=== PATIENT | female | born 1985 | race Caucasian/White ===

== ENCOUNTER 2020-01-12 21:57 | Emergency (ER) | payer OTHER ==
[~2020-01-12] VITALS: Ht 162.6 cm; Wt 61.2 kg
[~2020-01-12 21:57] MED LIST: AMOXICILLIN 50500 MG PO; ANTIANXIETY; CIPROFLOXACIN500 M1 PO; IBUPROFEN 600600 M1 PO; IBUPROFEN 800800 M1 PO; NORCO 5-325 TA1 EACH PO; SLEEPING PILL; SOMA250 MG PO; TRAMADOL 50 MG50 MG PO; XANAX XR3 MG PO; ZOFRAN ODT4 MG PO
[2020-01-12 23:11] VITALS: BP 132/70
== END 2020-01-12 23:22 | disposition home or self-care (01) ==
LOC: M.ERS 21:57
DX: S61.213A Laceration without foreign body of left middle finger without damage to nail, initial encounter (principal); F17.210 Nicotine dependence, cigarettes, uncomplicated; W23.0XXA Caught, crushed, jammed, or pinched between moving objects, initial encounter; Y93.89 Activity, other specified; Y92.89 Other specified places as the place of occurrence of the external cause; Y99.8 Other external cause status

== ENCOUNTER 2020-06-17 13:48 | Emergency (ER) | payer OTHER ==
[~2020-06-17] VITALS: Ht 170.2 cm; Wt 61.2 kg
[2020-06-17] MEDS ORDERED: NORCO 5-325 TA1 EAC2 PO (16:17)
[2020-06-17] MEDS ORDERED: MEDROLDOSEPACK PO (16:17)
[2020-06-17] MEDS ORDERED: NAPROSYN500 MG PO (16:17)
[2020-06-17 16:30] VITALS: BP 121/70
== END 2020-06-17 16:30 | disposition home or self-care (01) ==
LOC: M.ERS 13:48
DX: S16.1XXA Strain of muscle, fascia and tendon at neck level, initial encounter (principal); M25.512 Pain in left shoulder; Z88.8 Allergy status to other drugs, medicaments and biological substances; W10.8XXA Fall (on) (from) other stairs and steps, initial encounter; Y93.89 Activity, other specified; Y92.89 Other specified places as the place of occurrence of the external cause; Y99.8 Other external cause status

== ENCOUNTER 2020-08-24 18:19 | Emergency (ER) | payer OTHER ==
[~2020-08-24] VITALS: Ht 170.2 cm; Wt 63.5 kg
[~2020-08-24 18:19] MED LIST changes: +MEDROLDOSEPACK PO; +NAPROSYN500 MG PO; +NORCO 5-325 TA1 EAC2 PO
[2020-08-24] MEDS ORDERED: NORCO 5-325 TA1 EAC2 PO (18:55)
[2020-08-24] MEDS ORDERED: AUGMENTIN 875-1 EACH PO (18:55)
[2020-08-24 19:16] VITALS: BP 149/93
== END 2020-08-24 19:16 | disposition home or self-care (01) ==
LOC: M.ERS 18:19
DX: S51.811A Laceration without foreign body of right forearm, initial encounter (principal); F31.9 Bipolar disorder, unspecified; F41.9 Anxiety disorder, unspecified; Z88.8 Allergy status to other drugs, medicaments and biological substances; W54.0XXA Bitten by dog, initial encounter; Y93.89 Activity, other specified; Y92.89 Other specified places as the place of occurrence of the external cause; Y99.8 Other external cause status

== ENCOUNTER 2020-09-16 22:21 | Emergency (ER) | payer OTHER ==
[~2020-09-16] VITALS: Ht 167.6 cm; Wt 61.2 kg
[~2020-09-16 22:21] MED LIST changes: +AUGMENTIN 875-1 EACH PO
[2020-09-16 23:44] LABS: ABSOLUTE EOSINOPHILS 0.5 thou/uL (0.0-0.7); ABSOLUTE LYMPHOCYTES 2.5 thou/uL (0.8-5.3); ABSOLUTE MONOCYTES 0.4 thou/uL (0.0-1.2); BASOPHILS 0.7 %; EOSINOPHILS 8.4 %; HEMATOCRIT 40.4 % (37.0-47.0); HEMOGLOBIN 13.7 gm/dL (12.0-15.0); LYMPHOCYTES 38.2 %; MCHC 33.9 g/dL (28.0-37.0); MCV 97.3 fL (80.0-100.0); MONOCYTES 6.1 %; MPV 8.9 fl. (7.2-11.1); NUCLEATED RBCS 0 /100WBC; PLATELET COUNT* 234 thou/uL (150-400); POLYS 46.6 %; RBC 4.16 mil/uL (4.20-5.00); RDW-CV 12.7 % (10.5-14.5); WBC 6.5 thou/uL (4.0-11.0)
[2020-09-16 23:50] LABS: CALCIUM 9.5 mg/dL (8.5-10.1); CREATININE 0.7 mg/dL (0.6-1.3); POTASSIUM 3.7 mmol/L (3.5-5.1)
[2020-09-16 23:55] LABS: ALBUMIN 4.4 g/dL (3.4-5.0); TOTAL BILIRUBIN 0.5 mg/dL (<0.1-1.0); TOTAL PROTEIN 7.3 g/dL (6.4-8.2)
[2020-09-17] MEDS ORDERED: TRAMADOL 50 MG50 MG PO (02:28)
[2020-09-17] MEDS ORDERED: SKELAXIN 800 M800 M1 PO (02:28)
[2020-09-17 02:40] VITALS: BP 132/91
== END 2020-09-17 02:41 | disposition home or self-care (01) ==
LOC: M.ERS 22:21
PROVIDERS: Emergency Medicine
DX: M62.830 Muscle spasm of back (principal); M54.5 Low back pain; M54.6 Pain in thoracic spine; M79.645 Pain in left finger(s); R22.32 Localized swelling, mass and lump, left upper limb; R10.31 Right lower quadrant pain; M54.2 Cervicalgia; F17.210 Nicotine dependence, cigarettes, uncomplicated; G89.29 Other chronic pain; V49.49XA Driver injured in collision with other motor vehicles in traffic accident, initial encounter; Y93.89 Activity, other specified; Y92.89 Other specified places as the place of occurrence of the external cause; Y99.8 Other external cause status

== ENCOUNTER 2021-01-01 23:24 | Emergency (ER) | payer OTHER ==
[~2021-01-01] VITALS: Ht 165.1 cm; Wt 61.2 kg
[~2021-01-01 23:24] MED LIST changes: +SKELAXIN 800 M800 M1 PO
[2021-01-01] MEDS ORDERED: XANAX 0.5 MG0.5 M1 PO (23:35)
[2021-01-02 00:27] LABS: AMP/METHAMP POSITIVE (Negative); BARBITURATES Negative (Negative); BENZODIAZEPINES POSITIVE (Negative); COCAINE POSITIVE (Negative); METHADONE Negative (Negative); OPIATES Negative (Negative); PCP Negative (Negative); THC POSITIVE (Negative)
[2021-01-02 01:56] VITALS: BP 118/80
== END 2021-01-02 01:57 | disposition home or self-care (01) ==
LOC: M.ERS 23:24
PROVIDERS: Personal Emergency Response Attendant
DX: S01.01XA Laceration without foreign body of scalp, initial encounter (principal); G89.29 Other chronic pain; Z88.6 Allergy status to analgesic agent; W01.0XXA Fall on same level from slipping, tripping and stumbling without subsequent striking against object, initial encounter; Y93.89 Activity, other specified; Y92.098 Other place in other non-institutional residence as the place of occurrence of the external cause; Y99.8 Other external cause status

== ENCOUNTER 2021-01-07 11:07 | Emergency (ER) | payer OTHER ==
[~2021-01-07] VITALS: Ht 165.1 cm; Wt 60.8 kg
--- NOTE | ~2021-01-07 | EMS ---
[facility] [address] [place] [address] EMS Patient Care Report Name: SHARONA MASTERS Room: [facility]#: [id number] Admission: 01/07/21 Attend Phys: Discharge: Date of : 87 Report #: [id number] THIS REPORT FOR: //name// Report Transmitted: 01/07/2021 17:33 EMS Care Summary [facility] [place] Incident [id number] @ 01/07/2021 10:30 Incident Location [address] [place] [address] Patient SHARONA MASTERS Female, 35 Years 1985 Patient Address [address] [place] [address] Patient History Anxiety disorder, unspecified,Bipolar disorder, unspecified,Dysthymic disorder,Schizoaffective Disorder, Patient Allergies , Chief Complaint Pain-musculoskeletal Disposition Transported No Lights/[facility]man Dispatch Reason Traumatic Injury Transported To [facility] Narrative [facility] WAS DISPATED TO A FEMALE WHO FELLA FEW DAYS AGO AND NOW HAS A COMPLAINT OF ARM ANF RIB PAIN. UPON ARRIVAL PATIENT WAS FOUND SITTING ON A COUCH HOLDING HER LEFT ARM TIGHT TO HER BODY. DUE TO THE STATE THE HOUSE WAS IN, PATIENT WAS ASKED IF SHE COULD WALK OUTSIDE FOR THE CREW. PATIENT WAS ABLE TO WALK OUTSIDE WITH OUT ANY DIFFICLUTY. PATIENT STATED THAT SHE FELL IN THE SHOWER, NO BLOOD [facility] [address] [place] [address] EMS Patient Care Report Name: SHARONA MASTERS Room: [facility]ENC[facility]IAN#: [id number] Admission: 01/07/21 Attend Phys: Discharge: Date of : 87 Report #: [id number] THINNERS, NO LOSS OF CONCIUOUSNESS, AND DID NOT HIT HER HEAD. PATIENT STATED THAT SHE HAS BEEN TAKING PRESCRIBED MEDICATION TO SLEEP THAT WAS NOT PRESCRIBED TO HER. PATIENT ALSO ADMITTED TO METH USE FOR PAIN. PATIENT STATED THAT SHE HASN'T USED METH SINCE 18 YEARS OLD. PATIENT HAD NO SWELLING OR BRUISING. PATIENT MOTOR, SENSORY AND CIRCULATION WERE INTAKE OF THE AFFECTED ARM. PATIENT HAD NO FURTHER COMPLAINTS. NO CHANGE IN PATIENT CONDITION OCCURED WHILE EN ROUTE. PATIENT DID SIGN FOR HERSELF. UPON ARRIVAL PATIENT WAS TAKEN TO ROOM 6 AND WAS ALLOWED TO WALK TO THE BED FORM THE COT. REPORT WAS GIVEN TO RECEIVING NURSE AND SHE SIGNED FOR PATIENT CARE. --END-- Initial Vitals @10:49Pain: 07/10, @10:59Pain: 07/10, @10:51SpO2: 98, @11:00SpO2: 97, @10:50P: 85,R: 16,BP: 112/81,Revised Trauma: 8, @10:59P: 90,R: 16,BP: 120/80,Revised Trauma: 8, @10:50GCS: 15, @10:59GCS: 15, Assessments @10:40MENTAL:SKIN:HEENT:LUNG SOUNDS:ABDOMEN:PELVIS//GI:EXTREMITIES:PULSE:NEURO: Impression Chest Pain, Other (Non-Cardiac) Timeline 10:30,Call Received 10:30,Dispatch Notified 10:30,Psap Call 10:30,Dispatched 10:30,En Route 10:37,On Scene 10:40,At Patient 10:46,Depart Scene 10:49,BP: / M,PULSE: ,RR: R,SPO2: Ox,ETCO2: ,BG: ,PAIN: 10,GCS: , 10:50,BP: 112/81 M,PULSE: 85,RR: 16 R,SPO2: Ox,ETCO2: ,BG: ,PAIN: ,GCS: , 10:50,BP: / M,PULSE: ,RR: R,SPO2: Ox,ETCO2: ,BG: ,PAIN: ,GCS: 15, 10:51,BP: / M,PULSE: ,RR: R,SPO2: 98 Ox,ETCO2: ,BG: ,PAIN: ,GCS: , 10:59,BP: / M,PULSE: ,RR: R,SPO2: Ox,ETCO2: ,BG: ,PAIN: 10,GCS: , 10:59,BP: 120/80 M,PULSE: 90,RR: 16 R,SPO2: Ox,ETCO2: ,BG: ,PAIN: ,GCS: , 10:59,BP: / M,PULSE: ,RR: R,SPO2: Ox,ETCO2: ,BG: ,PAIN: ,GCS: 15, 11:00,BP: / M,PULSE: ,RR: R,SPO2: 97 Ox,ETCO2: ,BG: ,PAIN: ,GCS: , 11:05,[place] [address] EMS Patient Care Report Name: SHARONA MASTERS Room: [facility]#: [id number] Admission: 01/07/21 Attend Phys: Discharge: Date of : 87 Report #: [id number] 11:12,Call Closed Disclaimer [email or web address] Copyright 2020 [employer] This EMS Care Summary contains data elements from the applicable legal record (which may be displayed differently). It is designed to provide pertinent information for the following purposes: continuity of care, clinical quality, and state data reporting. The complete legal record is available to ED staff and administrators of the receiving hospital in [employer] Patient Tracker. All data is provided "as is."
[~2021-01-07 11:07] MED LIST changes: +XANAX 0.5 MG0.5 M1 PO
[2021-01-07] MEDS ORDERED: IBUPROFEN 800800 MG PO (12:19)
[2021-01-07] MEDS ORDERED: TRAMADOL 50 MG50 MG PO (12:19)
[2021-01-07 12:34] VITALS: BP 115/60
== END 2021-01-07 12:35 | disposition home or self-care (01) ==
LOC: M.ERS 11:07
DX: S40.012A Contusion of left shoulder, initial encounter (principal); G89.29 Other chronic pain; F17.210 Nicotine dependence, cigarettes, uncomplicated; Z88.6 Allergy status to analgesic agent; W18.39XA Other fall on same level, initial encounter; Y93.E1 Activity, personal bathing and showering; Y92.89 Other specified places as the place of occurrence of the external cause; Y99.8 Other external cause status

== ENCOUNTER 2021-01-21 15:21 | Emergency (ER) | payer OTHER ==
[~2021-01-21] VITALS: Ht 165.1 cm; Wt 61.2 kg
[~2021-01-21 15:21] MED LIST changes: +IBUPROFEN 800800 MG PO
[2021-01-21 15:46] VITALS: BP 121/86
== END 2021-01-21 15:46 | disposition home or self-care (01) ==
LOC: M.ERS 15:21
DX: S01.01XD Laceration without foreign body of scalp, subsequent encounter (principal); Z88.6 Allergy status to analgesic agent; X58.XXXD Exposure to other specified factors, subsequent encounter

== ENCOUNTER 2021-02-07 16:42 | Emergency (ER) | payer MEDICAID ==
[~2021-02-07] VITALS: Ht 165.1 cm; Wt 63.5 kg
[2021-02-07] MEDS ORDERED: CEPHALEXIN500 MG PO (17:35)
[2021-02-07 17:51] VITALS: BP 143/88
== END 2021-02-07 17:52 | disposition home or self-care (01) ==
LOC: M.ERS 16:42
DX: L03.113 Cellulitis of right upper limb (principal); Z88.6 Allergy status to analgesic agent

== ENCOUNTER 2021-04-12 09:16 | Emergency (ER) | payer OTHER ==
[~2021-04-12] VITALS: Ht 167.6 cm; Wt 62.6 kg
[~2021-04-12 09:16] MED LIST changes: +CEPHALEXIN500 MG PO
[2021-04-12] MEDS ORDERED: KLONOPIN0.5 MG PO (09:33)
[2021-04-12 10:55] LABS: ABSOLUTE EOSINOPHILS 0.5 thou/uL (0.0-0.7); ABSOLUTE LYMPHOCYTES 2.6 thou/uL (0.8-5.3); ABSOLUTE MONOCYTES 0.5 thou/uL (0.0-1.2); ABSOLUTE NEUTROPHILS 4.4 thou/uL (1.6-8.1); BASOPHILS 0.6 %; EOSINOPHILS 5.8 %; HEMATOCRIT 36.8 % (37.0-47.0); HEMOGLOBIN 12.6 gm/dL (12.0-15.0); LYMPHOCYTES 32.4 %; MCHC 34.3 g/dL (28.0-37.0); MCV 96.2 fL (80.0-100.0); MONOCYTES 5.7 %; MPV 10.2 fl. (7.2-11.1); NUCLEATED RBCS 0 /100WBC; PLATELET COUNT* 220 thou/uL (150-400); POLYS 55.5 %; RBC 3.83 mil/uL (4.20-5.00); RDW-CV 13.9 % (10.5-14.5)
[2021-04-12 10:55] LABS: URINE BILIRUBIN NEGATIVE (Negative); URINE BLOOD NEGATIVE (Negative); URINE CLARITY CLEAR; URINE COLOR YELLOW; URINE GLUCOSE-RANDOM NEGATIVE (Negative); URINE KETONES NEGATIVE (Negative); URINE LEUKOCYTES-REFLEX NEGATIVE (Negative); URINE NITRITE-REFLEX NEGATIVE (Negative); URINE PROTEIN TRACE (Negative)
[2021-04-12 11:01] LABS: CALCIUM 8.1 mg/dL (8.5-10.1); CREATININE 0.7 mg/dL (0.6-1.3); POTASSIUM 3.6 mmol/L (3.5-5.1)
[2021-04-12 11:05] LABS: TOTAL BILIRUBIN 0.4 mg/dL (<0.1-1.0); TOTAL PROTEIN 6.7 g/dL (6.4-8.2)
[2021-04-12] MEDS ORDERED: PHENERGAN 25 MG25 M1 PO (13:01)
[2021-04-12 13:12] VITALS: BP 98/50
== END 2021-04-12 13:13 | disposition home or self-care (01) ==
LOC: M.ERS 09:16
PROVIDERS: Nurse Practitioner Family
DX: B34.9 Viral infection, unspecified (principal); Z20.822 Contact with and (suspected) exposure to COVID-19; G43.909 Migraine, unspecified, not intractable, without status migrainosus; G89.29 Other chronic pain; M54.9 Dorsalgia, unspecified; F17.200 Nicotine dependence, unspecified, uncomplicated; Z88.5 Allergy status to narcotic agent; Z88.6 Allergy status to analgesic agent

== ENCOUNTER 2021-05-06 15:01 | Emergency (ER) | payer OTHER ==
[~2021-05-06] VITALS: Ht 162.6 cm; Wt 59.9 kg
[~2021-05-06 15:01] MED LIST changes: +KLONOPIN0.5 MG PO; +PHENERGAN 25 MG25 M1 PO
[2021-05-06 16:18] VITALS: BP 125/65
[2021-05-06] MEDS ORDERED: ONDANSETRON HCL4 M2 PO (16:28)
[2021-05-06] MEDS ORDERED: CEPHALEXIN500 MG PO (16:28)
[2021-05-06] MEDS ORDERED: PREDNISONE 20 M20 MG PO (16:28)
[2021-05-06] MEDS ORDERED: PROAIR HFA8.5 GM INH (16:28)
== END 2021-05-06 16:19 | disposition home or self-care (01) ==
LOC: M.ERS 15:01
DX: J06.9 Acute upper respiratory infection, unspecified (principal); Z20.822 Contact with and (suspected) exposure to COVID-19; G43.909 Migraine, unspecified, not intractable, without status migrainosus; F17.210 Nicotine dependence, cigarettes, uncomplicated; Z88.5 Allergy status to narcotic agent; Z88.6 Allergy status to analgesic agent

== ENCOUNTER 2021-06-08 19:54 | Emergency (ER) | payer OTHER ==
[~2021-06-08] VITALS: Ht 167.6 cm; Wt 62.1 kg
[~2021-06-08 19:54] MED LIST changes: +ONDANSETRON HCL4 M2 PO; +PREDNISONE 20 M20 MG PO; +PROAIR HFA8.5 GM INH
[2021-06-08] MEDS ORDERED: XANAX 0.5 MG0.5 M1 PO (19:59)
[2021-06-08] MEDS ORDERED: [UNRECOGNIZED DRUG - OTHER] (21:37)
[2021-06-08 21:48] VITALS: BP 150/80
== END 2021-06-08 21:49 | disposition home or self-care (01) ==
LOC: M.ERS 19:54
DX: S93.401A Sprain of unspecified ligament of right ankle, initial encounter (principal); G89.29 Other chronic pain; G43.909 Migraine, unspecified, not intractable, without status migrainosus; Z88.5 Allergy status to narcotic agent; X50.1XXA Overexertion from prolonged static or awkward postures, initial encounter; Y93.66 Activity, soccer; Y92.89 Other specified places as the place of occurrence of the external cause; Y99.8 Other external cause status

== ENCOUNTER 2021-07-09 12:40 | Emergency (ER) | payer OTHER ==
[~2021-07-09] VITALS: Ht 165.1 cm; Wt 58.1 kg
[~2021-07-09 12:40] MED LIST changes: +[UNRECOGNIZED DRUG - OTHER]
[2021-07-09] MEDS ORDERED: CYMBALTA60 MG PO (12:57)
[2021-07-09] MEDS ORDERED: SEROQUEL200 MG PO (12:57)
[2021-07-09] MEDS ORDERED: CEPHALEXIN500 MG PO (13:00)
[2021-07-09 13:09] VITALS: BP 144/88
== END 2021-07-09 13:09 | disposition home or self-care (01) ==
LOC: M.ERS 12:40
DX: T63.441A Toxic effect of venom of bees, accidental (unintentional), initial encounter (principal); G89.29 Other chronic pain; G43.909 Migraine, unspecified, not intractable, without status migrainosus; Z88.5 Allergy status to narcotic agent; Y92.89 Other specified places as the place of occurrence of the external cause